=== PATIENT | female | born 1965 | race Caucasian/White ===

== ENCOUNTER 2018-07-19 14:22 | Emergency (ER) | payer MEDICAID ==
[~2018-07-19] VITALS: Ht 160 cm; Wt 65.8 kg
[2018-07-19] MEDS ORDERED: IBUPROFEN 600 MG TABLET PO ONE ×2 (14:48→15:00)
[2018-07-19 16:12] VITALS: BP 145/89
[2018-07-19] MEDS ORDERED: ACETAMINOPHEN ES 500 MG TABLET ONE (16:25)
[2018-07-19] MEDS ORDERED: ACETAMINOPHEN ES 500 MG TABLET PO ONE (16:30)
== END 2018-07-19 16:27 | disposition home or self-care (01) ==
LOC: ER 14:30
DX: S99.811A Other specified injuries of right ankle, initial encounter (principal); W20.8XXA Other cause of strike by thrown, projected or falling object, initial encounter; Y93.89 Activity, other specified; Y92.89 Other specified places as the place of occurrence of the external cause; Y99.8 Other external cause status
CPT/HCPCS: 73610-TC